=== PATIENT | female | born 1940 | race Caucasian/White ===

== ENCOUNTER 2017-08-15 13:19 | Outpatient (CLI) | payer MEDICARE, BC ==
[2017-08-15 14:32] LABS: #Basophils 0.1 thou/uL (0.0-0.2); #Eosinphils 0.1 thou/uL (0.0-0.7); #Monocytes 0.8 thou/uL (0.11-0.59); #Neutrophils 6.3 thou/uL (1.40-6.50); %Basophils 1.1 % (0.0-1.0); %Eosinophils 1.5 % (0.0-10.0); %Lymphocytes 21.2 % (21.0-51.0); %Monocytes 8.4 % (0.0-10.0); %Neutrophils 67.9 % (42.0-75.0); Hemoglobin 14.4 g/dL (12.0-16.0); Mean Corpuscular HGB CONC 31.9 g/dL (32.0-36.0); Mean Corpuscular Hemoglobin 29.4 pg (27.0-31.0); Mean Corpuscular Volume 92.2 fl (81.0-99.0); Mean Platelet Volume 5.6 fL (7.4-10.4); Platelet Count 491 thou/uL (130-400); RBC Distribution Width 12.4 % (11.5-14.5); Red Blood Cell (RBC) Count 4.89 mill/uL (4.20-5.40); White Blood Cell (WBC) Count 9.3 thou/uL (4.8-10.8)
[2017-08-15 14:51] LABS: ALT (SGPT) 26 U/L (8-55); AST (SGOT) 23 U/L (5-34); Alkaline Phosphatase 57 U/L (40-150); Anion Gap 18 mmol/L (10-20); BUN (Urea Nitrogen) 20 mg/dL (9.8-20.1); Bilirubin, Total 0.4 mg/dL (0.2-1.2); Calc. Creatinine Clearance 0 mL/min (70-130); Calcium 9.6 mg/dL (7.8-10.44); Carbon Dioxide 26 mmol/L (23-31); Cardiac Risk 3.7 (Less than 4.5); Chloride 103 mmol/L (98-107); Cholesterol 223 mg/dl (< 200 Desired); Estimated GFR-MDRD Greater than 90; Globulin 2.9 g/dL (2.4-3.5); Glucose 100 mg/dL (83-110); HDL Cholesterol 61 mg/dL (>60 Neg Risk); LDL Cholesterol, Calculated 135 mg/dL; Potassium 4.6 mmol/L (3.5-5.1); Protein, Total 6.9 g/dL (6.0-8.3); Sodium 142 mmol/L (136-145); Triglycerides 133 mg/dL (Less than 150)
[2017-08-15 15:32] LABS: Thyroid Stimulating Hormone 0.7258 uIU/mL (0.35-4.94)
[2017-08-15 20:34] LABS: Ferritin 143.16 ng/mL (10-291)
== END 2017-08-15 13:20 | disposition home or self-care (01) ==
LOC: MADLABBHPM 13:19
PROVIDERS: ATTEND Family Medicine
DX: M81.0 Age-related osteoporosis without current pathological fracture (principal); D64.9 Anemia, unspecified
CPT/HCPCS: 36415; 80053; 80061; 82728; 84443; 85025

== ENCOUNTER 2019-05-05 16:33 | Emergency (ER) | payer MEDICARE, BC ==
[2019-05-05] MEDS ORDERED: Adacel (T-DAP) 0.5 ML SYRINGE ONE (17:00)
[2019-05-05] MEDS ORDERED: Azithromycin 250 MG TAB ONE (17:13)
== END 2019-05-05 17:20 | disposition home or self-care (01) ==
LOC: MADERS 16:33
DX: S61.412A Laceration without foreign body of left hand, initial encounter (principal); S61.230A Puncture wound without foreign body of right index finger without damage to nail, initial encounter; S61.232A Puncture wound without foreign body of right middle finger without damage to nail, initial encounter; S61.234A Puncture wound without foreign body of right ring finger without damage to nail, initial encounter; M19.90 Unspecified osteoarthritis, unspecified site; J45.909 Unspecified asthma, uncomplicated; Z79.899 Other long term (current) drug therapy; Z23 Encounter for immunization; W55.03XA Scratched by cat, initial encounter
CPT/HCPCS: 90471; 90715

== ENCOUNTER 2019-05-23 16:23 | Emergency (ER) | payer MEDICARE, BC ==
[2019-05-23] MEDS ORDERED: Morphine 4 MG/ML VIAL ONE (17:31)
== END 2019-05-23 18:00 | disposition home or self-care (01) ==
LOC: MADERS 16:23
DX: M54.6 Pain in thoracic spine (principal); G89.29 Other chronic pain; M19.90 Unspecified osteoarthritis, unspecified site; J45.909 Unspecified asthma, uncomplicated
CPT/HCPCS: J2270